=== PATIENT | male | born 1975 | race Two or more races ===

== ENCOUNTER → 2022-02-13 | Emergency (ER) | payer OTHER ==
[~2022-02-13] VITALS: Ht 167.6 cm; Wt 108.9 kg
[~2022-02-13] MED LIST: GABA-532 PO; GABA-536 PO; GABAPENTIN 100 MG CAPSULE ONE; GABAPENTIN 100 MG CAPSULE PO ONE; INSU100V7 SQ; INSULIN LISPRO/ASPART 100 UNIT/ML CARTRIDGE SQ SCH; INSULIN REGULAR, HUMAN 100 UNIT/ML 10 ML VIAL ONE; INSULIN REGULAR, HUMAN 100 UNIT/ML 10 ML VIAL SQ ONE; IV NS 0.9% 1,000 ML BAG IV ONE; LORAZEPAM 1 MG TABLET ONE; LORAZEPAM 1 MG TABLET PO ONE; Magnesium 1GM/D5W 100ML PREMIX 100 ML IV ONE; Magnesium 1GM/D5W 100ML PREMIX 100 ML IV SCH; ONDANSETRON HCL/PF 4 MG/2 ML VIAL IVP ONE; ONDANSETRON HCL/PF 4 MG/2 ML VIAL ONE; POTASSIUM CHLORIDE 20 MEQ TAB.PRT.SR PO ONE
--- NOTE | 2022-02-13 09:40 | NUR ---
24 g IV started on R hand. Blood and urine samples obtained and sent to lab.
[2022-02-13 10:06] LABS: MAGNESIUM 1.6 mg/dL (1.8-2.4)
[2022-02-13 10:12] LABS: ALBUMIN 3.8 g/dL (3.4-5.0); BILIRUBIN,DIRECT 0.2 mg/dL (0.0-0.2); CALCIUM, SERUM 8.7 mg/dL (8.5-10.1); CREATININE 0.8 mg/dL (0.6-1.3); POTASSIUM 3.4 mmol/L (3.5-5.1); TOTAL PROTEIN, SERUM 7.3 g/dL (6.4-8.2)
[2022-02-13 10:18] LABS: BASOPHILS % (AUTO) 0.4 % (0.0-2.0); EOSINOPHILS % (AUTO) 0.2 % (0.0-6.0); HEMATOCRIT 41 % (39-51); HEMOGLOBIN 14.2 g/dL (13.5-17.5); LYMPHOCYTES # (AUTO) 2.6 K/uL (0.8-4.8); LYMPHOCYTES % (AUTO) 25.2 % (20.0-44.0); MEAN CORPUSCULAR HGB CONC 35 g/dl (31.0-36.0); MEAN CORPUSCULAR VOLUME 87 fL (80-96); MONOCYTES # (AUTO) 0.6 K/uL (0.1-1.30); MONOCYTES % (AUTO) 6.1 % (2.0-12.0); NEUTROPHILS # (AUTO) 6.9 K/uL (1.8-8.9); NEUTROPHILS % (AUTO) 68.1 % (43.0-81.0); PLATELET COUNT (AUTO) 199 K/uL (150-450); RED BLOOD CELL COUNT(AUTO) 4.71 MIL/uL (4.5-6.0); WHITE BLOOD COUNT (AUTO) 10.2 K/uL (4.3-11.0)
[2022-02-13 10:33] LABS: BILIRUBIN,URINE NEGATIVE (NEGATIVE); COLOR,URINE YELLOW (YELLOW); LEUKOCYTE ESTERASE ,URINE NEGATIVE (NEGATIVE); NITRITE, URINE NEGATIVE (NEGATIVE); PROTEIN,URINE NEGATIVE (NEGATIVE); UGLUCOSE 3+ mg/dL (NEGATIVE); UROBILINOGEN,URINE 0.2 EU/dL (0.2)
--- NOTE | 2022-02-13 10:41 | NUR ---
MRSA swab obtained and placed in drop-off box
[2022-02-13 11:01] LABS: BACTERIA,URINE None seen /HPF (None Seen); RBC,URINE NONE SEEN /HPF (0-2); WBC,URINE NONE SEEN /HPF (0-3)
[2022-02-13 11:02] LABS: SQUAMOUS EPITHELIAL CELL,UR 0-2 /HPF (None Seen)
[2022-02-13] MEDS: Magnesium 1GM/D5W 100ML PREMIX 100 ML IV SCH ×2 (11:50→11:51)
--- NOTE | 2022-02-13 12:23 | NUR ---
Patient discharged to home in stable condition. Written and verbal after care instructions given. Patient verbalizes understanding of instruction.PT. VERBALIZED UNDERSTANDING OF AFTERCARE INSTRUCTIONS.IV removed. Catheter intact and site benign. Pressure and 4x4 applied to site. No bleeding noted. Rx given to patient.
[2022-02-13 12:27] VITALS: BP 132/68
--- NOTE | 2022-02-25 10:18 | NUR ---
ADDENDUM: MAGNESIUM 1 G/D5W WAS STARTED AT 1150 ON 02/13/22 AND ENDED AT 1220 ON 02/13/22.
== END | disposition home or self-care (01) ==
LOC: ER 08:42
DX: E11.65 Type 2 diabetes mellitus with hyperglycemia (principal); F41.9 Anxiety disorder, unspecified; T43.655A Adverse effect of methamphetamines, initial encounter; E87.6 Hypokalemia; E83.42 Hypomagnesemia; E86.0 Dehydration; Z79.4 Long term (current) use of insulin; Z60.2 Problems related to living alone; Z79.899 Other long term (current) drug therapy; Y92.89 Other specified places as the place of occurrence of the external cause
CPT/HCPCS: 36415; 80048-TC; 80076-TC; 81001; 82010-TC; 82962-TC; 83735-TC; 85025-TC; J1815; J2405; J3475; J7030